=== PATIENT | female | born 2000 | race Caucasian/White ===

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

== ENCOUNTER 2021-05-16 10:11 | Emergency (ER) | payer BC, MEDICAID, SELFPAY ==
[2021-05-16 10:11] VITALS: BP 133/100; PULSE 72; RESP 18; TEMP 36; O2SAT 100
--- NOTE | 2021-05-16 10:57 | ED.VIS.FEGU ---
HPI HPI - Female History of Present Illness Chief Complaint: Informant: patient Narrative Narrative: 20-year-old female G1, P0 at approximately 16 weeks presents the emergency department out of concerns for movement. She tells me that she has been able to feel the baby move since 14 weeks gestation. She has not felt it move very well the past week if at all. She denies any vaginal bleeding or leakage of fluid. Her private banker is in [place]. PFSH PFS Medical History no medical history Social History (Updated 05/16/21 @ 10:[address] Tomas Tristan, DO) Smoking Status: Never smoker substance use type: does not use ROS ROS ED Constitutional Constitutional ED: Denies chills, fever(s) or weight loss Eyes Eyes: Denies change in vision or diplopia ENT ENT ED: Denies ear pain, rhinorrhea or sore throat Cardiovascular Cardiovascular: Denies chest pain, orthopnea, palpitations or racing heartbeat Respiratory/Chest Respiratory/Chest: Denies cough, dyspnea or orthopnea Gastrointestinal Gastrointestinal: Denies abdominal pain, diarrhea, nausea or vomiting Genitourinary Genitourinary ED: Denies dysuria, hematuria or urinary frequency Musculoskeletal Musculoskeletal: Denies arthralgias or myalgias Integumentary Denies abscess or rash Neurologic Neurologic: Denies headache(s) or weakness Psychiatric Psychiatric: Denies anxiety, depression, suicidal ideation or suicidal thoughts Endocrine Endocrinology: Denies polydipsia, polyphagia or polyuria Allergic/Immunologic Allergic/Immunologic ED: Denies mouth swelling, tongue swelling or urticaria EXAM Physical Exam Const Vital Signs: 05/16/21 10:11 Temperature 96.8 F L Temperature Source Temporal Pulse Rate 72 Respiratory Rate 18 Blood Pressure 133/100 H Blood Pressure Mean 111 Pulse Ox 100 Oxygen Delivery Method Room Air Positive well nourished and well developed General Appearance ED: well developed HEENT Reports normocephalic, head/scalp atraumatic, TM's clear and moist mucous membranes Negative for trauma Tympanic Membrane ED: Yes TM's clear Eyes PERRL and EOMs intact bilaterally Neck no lymphadenopathy, supple and no JVD Resp normal respiratory effort and clear to auscultation bilaterally Cardio regular rate, regular rhythm and no murmurs GI normal to inspection, nondistended, normoactive bowel sounds and non-tender Palpation: soft Back/Spine no CVA tenderness and normal ROM Extremity normal to inspection General Extremety ED: Negative for edema General Extremity: Negative for edema Neuro oriented x3 and CN's II-XII intact bilaterally Sensorium / Orientation: alert Motor Exam: strength 5/5 throughout Psych mental status grossly normal Mood & Affect: Negative for depressed or tearful Skin no rashes or lesions noted and no wounds MDM MDM MDM Narrative Medical decision making narrative: Bedside ultrasound performed by this physician shows a single live intrauterine with heart rate of 148 bpm. Baby has good movement. At this point patient will be discharged home given reassurance. She is advised to follow-up with her private banker Discharge Plan Triage Chief Complaint: ED Provider: Tomas Tristan Dx/Rx/DC Orders Clinical Impression: Second trimester Instructions: Preg 2nd Trimester Primary Care Provider: Mel Anderson NP Referrals: Mel Anderson NP, ADVERTISING SPECIALIST-C [Primary Care Provider] - Activity Restrictions/Additional Instructions: Please follow-up with your private banker as scheduled Disposition Disposition: Home, Self Care
== END 2021-05-16 11:38 | disposition home or self-care (01) ==
PROVIDERS: Emergency Provider Emergency Medicine; PCP Nurse Practitioner Family
DX: O36.8120 Decreased fetal movements, second trimester, not applicable or unspecified (principal); Z3A.16 16 weeks gestation of pregnancy
CPT/HCPCS: 99282

== ENCOUNTER 2021-07-21 11:54 | Outpatient (CLI) | payer BC, MEDICAID, SELFPAY ==
[2021-07-21 12:22] LABS: Hematocrit 32.9 % (37-47); Mean Corp Hgb Conc 33.4 g/dL (32-36); Mean Corpuscular Hgb 30.4 pg (27.0-32.0); Mean Corpuscular Volume 90.9 fL (81-99); Mean Platelet Vol. 10.6 fl (6.2-12.0); Platelet Count 196 K/mm3 (150-450); RBC Distribution Width CV 13.1 % (11.6-14.6); RBC Distribution Width SD 42.8 fl (35.1-43.9); Red Blood Count 3.62 M/mm3 (4.2-5.4); White Blood Count 12.5 K/mm3 (4.4-11.0)
[2021-07-21 12:39] LABS: Glucose Challenge Gest 1H 50g 82 mg/dL (70-140)
== END 2021-07-21 23:59 | disposition short-term general hospital (02) ==
PROVIDERS: PCP Nurse Practitioner Family; Visit Provider Student in an Organized Health Care Education/Training Program
DX: Z34.82 Encounter for supervision of other normal pregnancy, second trimester (principal)
CPT/HCPCS: 36415; 82950; 85027

== ENCOUNTER 2021-10-09 17:10 | Outpatient (CLI) | payer BC, MEDICAID, SELFPAY | END 2021-10-09 23:59 | disposition home or self-care (01) | LOC: LABSPEC 17:13 | PROVIDERS: PCP Nurse Practitioner Family; Visit Provider Student in an Organized Health Care Education/Training Program | DX: Z36.85 Encounter for antenatal screening for Streptococcus B (principal) | CPT/HCPCS: 87081 ==

== ENCOUNTER 2021-10-17 16:07 | Inpatient (IN) | payer BC, MEDICAID, SELFPAY ==
[2021-10-17] VITALS (19 sets, daily range): BP systolic 119–139; BP diastolic 70–87; PULSE 87–245; RESP 18; TEMP 36.4–37.1; O2SAT 78–100; BMI 25.1
[2021-10-17 16:06] LABS: ROM Internal Control Test YES-OK TO RESULT pt. (Internal QC)
[2021-10-17 16:07] LABS: ROM Patient Test POSITIVE (Negative)
[2021-10-17] MEDS: Lactated Ringers 1,000 ML 50 ML IV (16:35)
[2021-10-17 16:53] LABS: Absolute Lymphocyte Count 2.09 X10^3/uL (0.83-4.51); Absolute Neutrophil Count 11.1 X10^3/uL (2.0-7.7); Basophil# 0.04 X10^3/uL; Basophil% 0.3 % (0-1); Eosinophil# 0.05 X10^3/uL; Eosinophils% 0.3 % (0-5); Hematocrit 34.9 % (37-47); Lymphocyte # 2.09 X10^3/ul (0.83-4.51); Lymphocyte % 14.2 % (19-41); Mean Corp Hgb Conc 34.4 g/dL (32-36); Mean Corpuscular Hgb 29.7 pg (27.0-32.0); Mean Corpuscular Volume 86.4 fL (81-99); Mean Platelet Vol. 11.1 fl (6.2-12.0); Monocyte# 1.19 X10^3/uL; Monocyte% 8.1 % (0-10); NRBC Flagged by Analyzer 0 % (0-5); Neutrophil % 75.5 % (47-70); Platelet Count 180 K/mm3 (150-450); RBC Distribution Width CV 13.5 % (11.6-14.6); RBC Distribution Width SD 41.8 fl (35.1-43.9); Red Blood Count 4.04 M/mm3 (4.2-5.4); White Blood Count 14.7 K/mm3 (4.4-11.0)
[2021-10-17] MEDS: Oxytocin 30 units/NS 500 ml 30 UNITS/500 ML IV.SOLN IV (17:00)
--- NOTE | 2021-10-17 17:07 | HP.PCM.OB_ITS ---
History and Physical Date of Admission: 10/17/21 HPI: 21-year-old at 38/5 weeks, JOAO 10/26/2021 by 10-week ultrasound, admitted with spontaneous rupture of membranes. Reports large gush of fluid around 1300, with continual leaking. Reports cramping, no regular contractions. Denies vaginal bleeding. Reports movement. Denies headache, vision changes, chest pain or shortness of breath, nausea or vomiting, fevers or chills. 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 Medical history: Denies Surgical history: Denies Family history: Noncontributory Allergies: No known drug allergies Social history: Reports some vaping, denies alcohol and drug use Medications: vitamin Review of system: Negative otherwise stated as above Physical exam: Blood pressure 124/75, heart rate 93, temp 98.3 ?F, oxygen saturation 98% on room air General: No acute distress, resting comfortably in bed HEENT: Normocephalic/atraumatic, PERRLA Cardiac: Regular rate and rhythm Respiratory: Clear to auscultation bilaterally Abdomen: Soft, nontender, gravid Extremities: No edema Musculoskeletal: 5 out of 5 strength throughout all extremities Neurologic: Cranial nerves II through XII grossly intact, no focal deficits Cervical exam: 3 cm, grossly ruptured, ROM positive heart rate:145/mod jeffrey/+accel/no decel [place]: occasionally irritable panel: A+ Rubella nonimmune GBS negative on 10/09 HIV negative Hepatitis B/hepatitis C negative/negative Syphilis nonreactive CBC: WBC 14.7, hemoglobin/hematocrit 12/34.9, platelet 180 Assessment/plan:21-year-old at 38/5 weeks, JOAO 10/26/2021 by 10-week ultrasound, admitted with spontaneous rupture of membranes. -Admit to labor and delivery, routine orders ?GBS negative ?Augment with Pitocin as patient is not having contractions -Rubella nonimmune. For MMR vaccine Assessment & Plan Assessment/Plan (1) Spontaneous rupture of membranes:
[2021-10-17 17:58] LABS: Amphetamine Urine VISTA NEGATIVE (<1000 ng/mL); Barbiturate Urine VISTA NEGATIVE (< 200 ng/mL); Benzodiazepine Urine VISTA NEGATIVE (< 200 ng/mL); Cocaine Urine VISTA NEGATIVE (< 300 ng/mL); Ecstacy Urine VISTA NEGATIVE (< 500 ng/mL); Methadone Urine VISTA NEGATIVE (< 300 ng/mL); PCP Urine VISTA NEGATIVE (< 25 ng/mL); THC Urine VISTA NEGATIVE (< 50 ng/mL); Vista UDS pH Range 6
--- NOTE | 2021-10-17 20:58 | OP.PCM_ITS ---
Vaginal Delivery Findings Description of Procedure: Normal spontaneous vaginal delivery of a viable male , vertex DELILAH. Head and shoulders delivered with ease. Cord cut and clamped. Baby handed off to patient. Placenta delivered via cord traction and fundal massage. IV oxytocin initiated in order to facilitate uterine contractions. Fourth degree midline perineal/rectal laceration noted and repaired. 20 cc of 1% lidocaine used, patient's pain well controlled. Good visualization of entire laceration noted at bedside with help of overhead lighting. With good pain control and visualization no need for OR repair. 3-0 Vicryl interrupted sutures used to reapproximate rectal mucosa. 3-0 Vicryl int errupted sutures used to reapproximate anal sphincter muscles end to end. 2-0 Vicryl used at apex of vaginal coastal tear reapproximated in running lock sutures to the hymenal ring. 2-0 Vicryl interrupted sutures used to reapproximate transverse perineal muscles. 2-0 Vicryl used to reapproximate subcutaneous layer and again cutaneous layer. Good hemostasis was noted. Repeat rectal exam was performed and sutures were intact and rectum fully reapproximated. EBL 400 cc Apgars 8/9. Cefotetan 2 g IV x1 given, stool softener started.
[2021-10-17] MEDS: Ibuprofen 600 MG Tablet PO (21:10)
[2021-10-17] MEDS: Dibucaine 30 GM Tube 1 APPLIC TOPICAL (21:10)
[2021-10-17] MEDS: Oxytocin 30 units/NS 500 ml 30 UNITS/500 ML IV.SOLN 334 UNITS IV (21:22)
[2021-10-17] MEDS: Acetaminophen 500 MG Tablet 1000 MG PO (22:21)
[2021-10-17] MEDS: Senna/Docusate Sodium 1 Tablet PO (22:27)
[2021-10-18] MEDS: Ibuprofen 600 MG Tablet PO ×2 (04:05→20:36)
[2021-10-18 04:08] VITALS: BP 118/61; PULSE 88; RESP 16; TEMP 37
[2021-10-18] MEDS: oxyCODONE 5 MG Tablet PO ×4 (04:25→21:41)
[2021-10-18 08:40] VITALS: BP 109/65; PULSE 94; RESP 16; TEMP 36.4; O2SAT 96
[2021-10-18] MEDS: Acetaminophen 500 MG Tablet 1000 MG PO (10:35)
[2021-10-18 12:23] VITALS: BP 109/69; PULSE 84; RESP 16; TEMP 36.4; O2SAT 97
--- NOTE | 2021-10-18 14:59 | PN.OBGYN_ITS ---
Subjective Subjective Pt without complaints. Minimal vaginal bleeding. Wants to go home later today if baby is able to go. Objective Data Objective Data Vital Signs: Vital Signs Temp Pulse Resp BP Pulse Ox 97.5 F L 84 16 109/69 97 10/18/21 12:23 10/18/21 12:23 10/18/21 12:23 10/18/21 12:23 10/18/21 12:23 Oxygen Delivery Method Room Air Weight: 141 lb 12.116 oz Body Mass Index (BMI) 25.1 Intake & Output: Intake and Output for Last 24 Hours 10/16/21 10/17/21 10/18/21 23:59 23:59 23:59 Intake Total 715.37 / 715.37 Output Total 1100 / 1100 Balance 715.37 / 715.37 -1100 / -1100 Lab / Micro Data Result Diagrams: 10/17/21 16:35 Labs: Laboratory Results - last 24 hr 10/17/21 15:50: Vag Amniotic Fld Detect POSITIVE H 10/17/21 16:35: WBC 14.7 H, RBC 4.04 L, Hgb 12.0, Hct 34.9 L, MCV 86.4, MCH 29.7, MCHC 34.4, RDW Std Deviation 41.8, RDW Coeff of Nhi 13.5, Plt Count 180, MPV 11.1, Immature Gran % (Auto) 1.600 H, Neut % (Auto) 75.5 H, Lymph % (Auto) 14.2 L, [place] % (Auto) 8.1, Eos % (Auto) 0.3, Baso % (Auto) 0.3, Absolute Neuts (auto) 11.1 H, Absolute Lymphs (auto) 2.09, Nucleated RBC % 0 10/17/21 16:35: Blood Type A POSITIVE, Antibody Screen NEGATIVE 10/17/21 17:20: Urine Opiates Screen NEGATIVE, Urine Methadone Screen NEGATIVE, Ur Barbiturates Screen NEGATIVE, Ur Phencyclidine Scrn NEGATIVE, Ur Amphetamines Screen NEGATIVE, MDMA (Ecstasy) Screen NEGATIVE, U Benzodiazepines Scrn NEGATIVE, Urine Cocaine Screen NEGATIVE, U Cannabinoids Screen NEGATIVE, Ur Drug Screen Comment Micro: Microbiology 10/17/21 16:33 Nasal Secretion SARS-CoV-2 Antigen (Rapid) - Final Assessment & Plan (1) Spontaneous vaginal delivery: PLAN: Doing well PPD 1. Will discharge to home with routine instructions. F/U 6 weeks.
[2021-10-18] MEDS: Benzocaine/Lanolin/Aloe Vera 1 SPRAY EACH TOPICAL (15:03)
--- NOTE | 2021-10-18 15:03 | DCINST_ITS ---
Discharge Instructions Diet Discharge Diet: No restrictions Activity Discharge Activity: May Drive (In 1 to 2 days if not taking narcotic pain medication), May Shower and May Take a Tub Bath May resume sexual activity in: 4-6 weeks Additional Activity Instructions:: Nothing in the vagina for 4-6 weeks. You may return to work/school in 6 weeks. Dressing / Incision Call your doctor if you observe: Fever of 101 or Higher, Inability to urinate, Inability to have a bowel movement and Using more than 1 pad per hour Additional Dressing/Incision Instructions:: use stool softener for 4-6 weeks; sitz baths ok Follow Up Care Please Follow Up With: Yessy Lomeli DO When: Call [phone] to make an appointment with your doctor in 6 weeks. Test Results: Test results from this visit will be discussed in further detail at your follow-up appointment, if applicable. Discharge Plan Admission Admit Date/Time: 10/17/21 16:07 Primary Reason for Your Visit: Vaginal Delivery Attending Provider: Tolu Lomeli Primary Care Provider: Mel Anderson NP Discharge Orders/Prescriptions Prescriptions: No Action + Iron 1 mg Tablet 1 tab PO RF: 0 Referrals / Follow Up: Mel Anderson NP, NUCLEAR MEDICINE SPECIALIST-C [Primary Care Provider] - Disposition Disposition (needs filled in before D/C Order can be placed): Home, Self Care
[2021-10-18] MEDS: Senna/Docusate Sodium 1 Tablet PO ×2 (15:08→21:41)
[2021-10-18 15:42] VITALS: BP 109/61; PULSE 74; RESP 16; TEMP 36.1; O2SAT 97
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
--- NOTE | 2021-10-18 18:56 | NURSING ---
this RN has reviewed and agrees with all charting completed by Oren Bowles, orienting RN
[2021-10-18 20:23] VITALS: BP 109/66; PULSE 80; RESP 16; TEMP 36.6; O2SAT 97
[2021-10-19 02:35] VITALS: BP 103/56; PULSE 80; RESP 16; TEMP 36.7; O2SAT 100
[2021-10-19] MEDS: Ibuprofen 600 MG Tablet PO ×3 (02:42→15:29)
--- NOTE | 2021-10-19 07:11 | PCM.PN.OB ---
Subjective Subjective No overnight complaints. Pain well controlled Objective Data Objective Data Vital Signs: Vital Signs Temp Pulse Resp BP Pulse Ox 98.0 F 80 16 103/56 L 100 10/19/21 02:35 10/19/21 02:35 10/19/21 02:35 10/19/21 02:35 10/19/21 02:35 Oxygen Delivery Method Room Air Weight: 141 lb 12.116 oz Body Mass Index (BMI) 25.1 Intake & Output: Intake and Output for Last 24 Hours 10/17/21 10/18/21 10/19/21 23:59 23:59 23:59 Intake Total 715.37 / 715.37 Output Total 1100 / 1100 Balance 715.37 / 715.37 -1100 / -1100 Lab / Micro Data Result Diagrams: 10/17/21 16:35 Micro: Microbiology 10/17/21 16:33 Nasal Secretion SARS-CoV-2 Antigen (Rapid) - Final Physical Exam Const alert, oriented x3, no apparent distress, average body habitus, healthy appearing and well nourished HEENT normocephalic and moist oral mucous membranes Head and Scalp: atraumatic Face and Sinus: normal facial exam Neck full ROM Resp normal respiratory effort, no retractions and no use of accessory muscles Extremity normal to inspection, full ROM and no clubbing, cyanosis or edema Psych mental status grossly normal, affect normal, speech normal and activity/motor behavior normal Assessment & Plan (1) Spontaneous vaginal delivery: PLAN: day 2. Breast-feeding. Pain well controlled. Fourth degree laceration, overall pain well controlled. Discussed stool softeners and avoiding constipation. Discussed signs and symptoms of wound complications. To follow-up within 1 week
--- NOTE | 2021-10-19 07:12 | DS.PCM_ITS ---
Discharge Summary Date of Admission: 10/17/21 Date of Discharge: 10/19/21 Summary: Patient arrived in labor on 10/17/2021 and subsequently delivered vaginally on 10/17/2021. 4 degree laceration noted and repaired. 2 g cefotetan x1 given. Stool softener started. Pain well controlled. With standard recovery. Discharge home on 10/19/2021 Meaningful Use Info Meaningful Use Diagnoses (Choose all that apply): None applicable Discharge Plan Admission Admit Date/Time: 10/17/21 16:07 Primary Reason for Your Visit: Vaginal Delivery Attending Provider: Tolu Lomeli Primary Care Provider: Mel Anderson NP Instructions Additional Instructions / Restrictions: Regular diet. No lifting over 25 pounds for 2 to 3 weeks. May shower. No tub baths for 2 weeks. Call if fevers, chills, chest pain, shortness of breath. Sitz bath as needed. Follow-up 1 week Discharge Orders/Prescriptions Prescriptions: New sennosides-docusate sodium [Stool Softener-Stimulant Laxat] 8.6-50 mg Tablet 1 tab-cap PO BID Qty: 60 RF: 1 Continued gjhijabw-bsw-En-FA 1 mg Tablet 1 tab PO RF: 0 Referrals / Follow Up: Mel Anderson NP, MECHANICAL ENGINEERING TEACHER-C [Primary Care Provider] - Disposition Disposition (needs filled in before D/C Order can be placed): Home, Self Care
[2021-10-19 07:34] VITALS: BP 109/61; PULSE 89; RESP 14; TEMP 36.2
[2021-10-19] MEDS: Senna/Docusate Sodium 1 Tablet PO (09:13)
--- NOTE | 2021-10-19 12:47 | CASEMGMT ---
Social Work Labor and Delivery Unit Checked with [facility] program in [place] and can only service [facility]. [facility] referral services [facility]. Gathered list of counselor providers on [employer] Website, selecting providers that identify working with trauma and issues. Printed list out. Met with MOB in room. Update to [facility] vs [facility] and MOB agrees to [facility] referral. Educated to list of counselors. At this time, MOB will take the information and look over. Asked this contract technical writer to leave this contract technical writer's name and number, so that if decides before leaving the hospital that wants assist will call this contract technical writer. Provided MOB with list of resources for both [place] and [facility], packet on mood and anxiety disorder including supports, and list of counseling options. MOB expressed thanks. MOB smiling today, bright affect, holding baby, and appearing to be bonding. MOB looked at baby, smiled at baby,and talked to baby. [facility] referral submitted via the [facility]'s secure web based referral system. Plan: MOB and infant to discharge home today with support from MOB's parents. Community resources and counseling options provided. [facility] referral made. Will monitor for meconium drug screen results and make appropriate referrals if so indicated. No other services requested or indicated. -SHI Oliver, OXIDIZED FINISH PLATER
[2021-10-19 13:04] VITALS: BP 111/56; PULSE 83; RESP 12; TEMP 36.4
[2021-10-19] MEDS: Acetaminophen 500 MG Tablet 1000 MG PO (15:29)
== END 2021-10-19 15:30 | disposition home or self-care (01) | DRG 768 ==
LOC: WPOUT 16:11 → WP 16:11
PROVIDERS: Admitting Provider Obstetrics & Gynecology; PCP Nurse Practitioner Family; Visit Provider Obstetrics & Gynecology
DX: O70.3 Fourth degree perineal laceration during delivery (principal); Z20.822 Contact with and (suspected) exposure to COVID-19; Z37.0 Single live birth; Z3A.38 38 weeks gestation of pregnancy
CPT/HCPCS: 59025; 59050; 80307; 84112; 85025; 86850; 86900; 86901; 87426; 99218; 99406; J7120; G0378

== ENCOUNTER → 2021-11-27 | Outpatient (CLI) | payer BC, MEDICAID, SELFPAY ==
[2021-11-27 14:47] LABS: hCG Titer Quant., Serum < 1 mIU/mL (1-3)
[2021-11-27 14:49] LABS: T4 Free Direct 0.91 ng/dL (0.76-1.46); Thyroid Stim Hormone (TSH) 0.72 uIU/mL (0.358-3.74)
== END | disposition home or self-care (01) ==
LOC: WOBLAB 13:52
PROVIDERS: PCP Nurse Practitioner Family; Visit Provider Student in an Organized Health Care Education/Training Program
DX: N93.9 Abnormal uterine and vaginal bleeding, unspecified (principal)
CPT/HCPCS: 36415; 84439; 84443; 84702

== ENCOUNTER 2024-07-15 15:22 | Emergency (ER) | payer MEDICAID, SELFPAY ==
[2024-07-15] VITALS (7 sets, daily range): BP systolic 111–138; BP diastolic 69–89; PULSE 74–101; RESP 13–18; TEMP 36.1–36.6; O2SAT 97–100; BMI 25.2
--- NOTE | 2024-07-15 15:31 | ED.RN ---
Spoke with Dr. Rodriguez and Dr. Cabrera about pt sx. No orders given @ this time. Also spoke with Pablo Toth RN about pt sx, that RN to room.
--- NOTE | 2024-07-15 15:40 | ED.RN ---
S/O STATES SPEECH IS BETTER BUT NOT NORMAL.
--- NOTE | 2024-07-15 15:57 | EKG12_ITS ---
Test Reason : Blood Pressure : */* mmHG Vent. Rate : 69 BPM Atrial Rate : 69 BPM P-R Int : 136 ms QRS Dur : 78 ms QT Int : 392 ms P-R-T Axes : 45 87 63 degrees QTcB Int : 420 ms Normal sinus rhythm Normal ECG Confirmed by Cesar Macias ([id number]), fan mail editor CHARO PATHAK ([id number]) on 07/16/2024 10:19:58 AM Referred By: Confirmed By: Cesar Macias
--- NOTE | 2024-07-15 15:58 | CT_ITS ---
EXAMINATION : Head CT w/out contrast HISTORY : Neurologic changes COMPARISON : None. TECHNIQUE : Multiple contiguous axial images were obtained from the skull base to the vertex without intravenous contrast. A radiation dose optimization technique was used for this scan. FINDINGS : The ventricles and sulci are normal in size. There is no evidence for acute intracranial hemorrhage, mass effect, or midline shift. There is no extra-axial fluid collection. There is normal rocha-white differentiation, without CT evidence of acute ischemia or infarct. The skull base and calvarium are unremarkable. The orbits are unremarkable. The paranasal sinuses are clear. The mastoid air cells are well-aerated. The soft tissues are unremarkable. CT/Brain/Head without Contrast IMPRESSION: No acute intracranial abnormality. Electronically Signed: Martin Savage MD at 16:45 EST ,
--- NOTE | 2024-07-15 15:59 | MRI_ITS ---
STUDY: EXAMINATION - MRV BRAIN WITHOUT CONTRAST REASON FOR EXAM: Female, 24 years old. R/O Central venous thrombosis TECHNIQUE: 3D [id number] (TOF) imaging was performed. COMPARISON: CT brain from today. FINDINGS: Normal flow within the superior sagittal sinus. Normal flow within the superficial cortical veins. Normal flow within the paired internal cerebral veins, vein of Jorge and straight sinus. Normal flow within the bilateral transverse and sigmoid sinuses. Normal flow within the bilateral jugular bulbs. MRI/MRV Head Without Contrast IMPRESSION: Normal unenhanced MRV of the brain. Electronically Signed: Charles Casanova MD at 19:00 EST ,
[2024-07-15 16:00] LABS: Bedside Glucose 105 mg/dL (74-106)
--- NOTE | 2024-07-15 16:00 | RAD_ITS ---
INDICATION: Neurologic changes EXAMINATION/TECHNIQUE: X-RAY - XR Chest 1 View COMPARISON: None. FINDINGS: The lungs are clear. The cardiomediastinal silhouette is unremarkable. No pleural effusion or pneumothorax. No acute osseous abnormalities. RAD/Chest 1 View (Portable) IMPRESSION: No acute radiographic abnormalities. Electronically Signed: Martin Savage MD at 16:46 EST ,
[2024-07-15] MEDS: 0.9% Normal Saline (1000mL) 1,000 ML 1000 ML IV (16:10)
[2024-07-15 16:16] LABS: Mucous, Urine 0 SEEN /hpf (<or=2+)
[2024-07-15 16:18] LABS: Color, Urine Yellow (Yellow); Glucose, Dipstick Normal (Normal); Ketone-Dipstick Negative (Negative); Leukocyte Esterase-Dipstick Negative /ul (Negative); Nitrite-Dipstick Negative (Negative); Occult Blood-Urine Negative /ul (Negative); Protein-Dipstick Negative (Negative); Urine Bilirubin Dipstick Negative (Negative); Urine Clarity Clear (Clear); Urine Urobilinogen Normal (Normal)
[2024-07-15 16:19] LABS: Absolute Lymphocyte Count 1.91 X10^3/uL (0.83-4.51); Absolute Neutrophil Count 9.3 X10^3/uL (2.0-7.7); Basophil# 0.04 X10^3/uL; Basophil% 0.3 % (0-1); Eosinophil# 0.06 X10^3/uL; Eosinophils% 0.5 % (0-5); Hematocrit 32.6 % (37-47); Hemoglobin 10.6 g/dL (12.0-15.0); Lymphocyte # 1.91 X10^3/ul (0.83-4.51); Lymphocyte % 15.1 % (19-41); Mean Corp Hgb Conc 32.5 g/dL (32-36); Mean Corpuscular Hgb 26.5 pg (27.0-32.0); Mean Corpuscular Volume 81.5 fL (81-99); Mean Platelet Vol. 11.7 fl (6.2-12.0); Monocyte# 1.15 X10^3/uL; Monocyte% 9.1 % (0-10); NRBC Flagged by Analyzer 0 % (0-5); Neutrophil # 9.34 X10^3/uL (2.7-7.7); Neutrophil % 73.6 % (47-70); Platelet Count 212 K/mm3 (150-450); RBC Distribution Width CV 14.4 % (11.6-14.6); RBC Distribution Width SD 40.8 fl (35.1-43.9); White Blood Count 12.7 K/mm3 (4.4-11.0)
--- NOTE | 2024-07-15 16:27 | EDS_ITS ---
HPI History of Present Illness Chief Complaint: Neuro S/Sx Narrative Narrative: Chief complaint and HPI: Neurological deficits, resolved. 24-year-old female who is G2, P1 and 35 weeks presents for evaluation of neurological deficits that are now resolved. Patient states since June she has been getting intermittent headaches. She has updated her MOBILE GAME ENGINEER with this. She states around 2 PM while watching TV she developed a headache and blurry vision in both eyes. She states that her blurry vision was central and that she could see in the peripheries. She also felt dazed. states she had difficulty following directions. They called the MOBILE GAME ENGINEER who told them to come for evaluation. While in the car the patient states that she developed some numbness/tingling in her left hand and arm. She then had numbness in her jaw. She cannot remember if it was both sides. states she was then slow to respond with possible slurring of the speech. He then brought her to the emergency department. Patient and states her symptoms have all resolved . Patient now endorses mild headache. No complications with this or that fetus. No abdominal pain or vaginal bleeding. She is feeling the fetus move. She states she got an iron infusion yesterday. She denies any fever, chills, shortness of breath, chest pain, abdominal pain, dysuria. States she has baseline nausea throughout this . Review of systems: See HPI Medications: As listed on the chart Allergies: As listed on the chart PFSH: Per chart Vital signs: As listed on the chart. Reviewed. Physical exam: Gen: A&O x3, NAD Head: Normocephalic, atraumatic Eyes: No sclera icterus, conjunctiva clear, PERRL, EOMI, no visual field deficit ENT: Moist mucous membranes, No facial asymmetry Neck: Trachea midline, No JVD, full range of motion CV: RRR, no murmurs, no peripheral edema Resp: Lungs CTA BL, no w/r/c GI: Abd soft, non-distended, non-tender, no r/r/g Musc: Full ROM, no deformity, strength +5/5 in all extremities, no pronator drift, no ataxia, DTR +2/5 Skin: Warm, dry, intact Neuro: Alert, oriented, grossly intact, sensation intact, no focal deficits, no aphasia, no dysarthria, NIH 0 Psych: Cooperative, appropriate mood and affect PFSH PFSH Medical History no medical history Home Medications ?Medication ?Instructions ?Recorded ?Last Taken ?Type crgookna-jty-Cx-FA 1 mg 1 tab PO Check with primary doctor 10/17/21 10/16/21 09:00 History tablet sennosides 8.6 mg-docusate sodium 1 tab-cap PO BID #60 tabs 10/19/21 Unknown Rx 50 mg tablet (Stool Softener-Stimulant Laxative) cephalexin 500 mg capsule 500 mg PO Q6H 7 days #28 CAPSULES 07/15/24 Unknown Rx Allergy/AdvReac Type Severity Reaction Status Date / Time No Known Allergies Allergy Verified 07/15/24 15:23 Social History Smoking Status: Former smoker substance use type: does not use EXAM Physical Exam Const Vital Signs: 07/15/24 15:23 07/15/24 15:31 07/15/24 15:49 Temperature 97.9 F Temperature Source Temporal Pulse Rate 101 H 87 Respiratory Rate 18 13 Blood Pressure 138/89 H 134/88 H 117/79 Blood Pressure Mean 105 103 91 Pulse Ox 100 97 Oxygen Delivery Method Room Air 07/15/24 16:31 07/15/24 18:00 07/15/24 19:00 Temperature Temperature Source Pulse Rate 84 74 Respiratory Rate 16 Blood Pressure 111/69 113/74 119/84 H Blood Pressure Mean 83 87 95 Pulse Ox 100 Oxygen Delivery Method 07/15/24 19:48 Temperature 97 F L Temperature Source Pulse Rate 74 Respiratory Rate 16 Blood Pressure 117/71 Blood Pressure Mean 86 Pulse Ox 100 Oxygen Delivery Method MDM MDM MDM Narrative Medical decision making narrative: 24-year-old female who is G2, P1 and 35 weeks presents for evaluation of neurological deficits that are now resolved. See HPI. Differential diagnosis includes but is not limited to central venous thrombosis, complex migraine, TIA, electrolyte abnormality, preeclampsia, symptomatic hypertension. On presentation patient was hypertensive at 138/89 however repeat blood pressure 117/79. Patient states she has had no issues with hypertension throughout this . NS bolus ordered. Laboratory workup ordered including CT head and MRV head. heart tones 160. POC glucose normal. CBC with mild leukocytosis of 12.7. This can be seen in . Patient has anemia of 10.6. Again not uncommon for . Platelets unremarkable. Coagulation panel unremarkable. CMP without ESTUARDO or transaminitis. Troponin unremarkable. LDH unremarkable. UA negative for ketones or blood. UA negative for UTI but patient does have bacteria. CT head without any acute intracranial process. MRV unremarkable. Patient has remained asymptomatic in our emergency department. Unclear etiology for her symptoms. May be secondary to a complex migraine given that patient had a headache at the time of symptom onset. MRI brain without abnormalities. Patient's MOBILE GAME ENGINEER was contacted and I spoke with Dr. Ross he was the physician on-call. She was updated on all results. Plan is to follow-up in their office. Patient was updated on all her results and the plan. She confirmed understanding. Return precautions explained. Patient stable to discharge home. EKG: Interpreted by me/EM physician: EKG shows normal sinus rhythm without any acute ischemic changes. Heart rate 69 Diagnostic: Interpreted by me/EM physician: Chest x-ray without pneumonia, cardiomegaly, effusion, pneumothorax Impression: 1. Alteration in neurological function, resolved. Possible complex migraine. 2. Anemia 3. Third trimester Lab Data Labs: Laboratory Results - last 24 hr 07/15/24 07/15/24 15:38 15:42 WBC 12.7 H RBC 4.00 L Hgb 10.6 L Hct 32.6 L MCV 81.5 MCH 26.5 L MCHC 32.5 RDW Std Deviation 40.8 RDW Coeff of Nhi 14.4 Plt Count 212 MPV 11.7 Immature Gran % (Auto) 1.400 H Neut % (Auto) 73.6 H Lymph % (Auto) 15.1 L Mcleod % (Auto) 9.1 Eos % (Auto) 0.5 Baso % (Auto) 0.3 Absolute Neuts (auto) 9.3 H Absolute Lymphs (auto) 1.91 Nucleated RBC % 0 PT 12.7 INR 0.9 APTT 28.2 Sodium 137 Potassium 3.6 Chloride 104 Carbon Dioxide 27.0 Anion Gap 6 BUN 8 Creatinine 0.70 Estim Creat Clear Calc 113.10 Est GFR (MDRD) Af Amer 133 Est GFR (MDRD) Non-Af 110 BUN/Creatinine Ratio 11.4 Glucose 100 Calcium 8.7 Total Bilirubin 0.20 AST 14 L ALT 20 Alkaline Phosphatase 196 H Lactate Dehydrogenase 158 Troponin I High Sens 3 Total Protein 6.6 Albumin 2.4 L Globulin 4.2 Albumin/Globulin Ratio 0.6 L Urine Color Yellow Urine Clarity Clear Urine pH 7.0 Ur Specific [place] 1.010 Urine Protein Negative Urine Glucose (UA) Normal Urine Ketones Negative Urine Occult Blood Negative Urine Nitrite Negative Urine Bilirubin Negative Urine Urobilinogen Normal Ur Leukocyte Esterase Negative Urine RBC 0-5 SEEN Urine WBC 5-10 SEEN Ur Squamous Epith Cells 0-5 SEEN Urine Bacteria 1+ Urine Mucus 0 SEEN POC Glucose 105 Radiography Diagnostic Testing: Clinical Impression(s) from Imaging Studies Brain CT 07/15/24 15:58 IMPRESSION: No acute intracranial abnormality. Electronically Signed: Martin Savage MD at 16:45 EST , Brain MRI 07/15/24 15:59 IMPRESSION: Normal unenhanced MRV of the brain. Electronically Signed: Charles Casanova MD at 19:00 EST , Chest X-Ray 07/15/24 16:00 IMPRESSION: No acute radiographic abnormalities. Electronically Signed: Martin Savage MD at 16:46 EST , Discharge Plan Triage Chief Complaint: Neuro S/Sx ED Provider: Johnathan Calloway Dx/Rx/DC Orders Clinical Impression: Headache, Alteration in neurologic function Instructions: ED Headache Unspecified, ED Symptoms Uncertain Cause Prescriptions: New cephalexin 500 mg capsule 500 mg PO Q6H 7 Days Qty: 28 0RF No Action jsgzkrem-jwg-Hn-FA 1 mg Tablet 1 tab PO sennosides-docusate sodium [Stool Softener-Stimulant Laxat] 8.6-50 mg Tablet 1 tab-cap PO BID Qty: 60 1RF Primary Care Provider: Mel Anderson NIGHT PATROL INSPECTOR Referrals: John Motley MD [Med Staff - Active Staff] - 3-5 Days Mel Anderson NP, NIGHT PATROL INSPECTOR-C [Primary Care Provider] - 3-5 Days Activity Restrictions/Additional Instructions: Return back to the ED if symptoms change or worsen. Follow-up with your primary care physician. Call the office tomorrow and follow-up with your MOBILE GAME ENGINEER. Print Language: Tuvaluan Disposition Disposition: Home, Self Care Discharge Date/Time: 07/15/24 20:01
[2024-07-15 16:28] LABS: International Normalized Ratio 0.9; Prothrombin Time (Protime)PT. 12.7 SECONDS (11.7-14.9)
[2024-07-15 16:29] LABS: Partial Thromboplast Time 28.2 Seconds (24.1-36.2)
[2024-07-15 16:42] LABS: Bacteria 1+ /hpf (None Seen); Red Blood Cells-Urine 0-5 SEEN /hpf (0-5); Squamous Epithelial Cells - UA 0-5 SEEN /hpf (5-10)
[2024-07-15 16:43] LABS: White Blood Cells 5-10 SEEN /hpf (0-5)
[2024-07-15 17:01] LABS: ALB/GLOB Ratio 0.6 RATIO (0.9-2.4); AST(SGOT) 14 U/L (15-37); Alanine Aminotransfer ALT/SGPT 20 U/L (13-56); Albumin, Serum 2.4 g/dL (3.2-5.0); Alkaline Phosphatase 196 U/L (45-117); Anion Gap 6 (5-15); BUN 8 mg/dL (7-18); BUN/Creat Ratio 11.4 RATIO (10-20); Calcium,Total 8.7 mg/dL (8.5-10.1); Chloride 104 mmol/L (98-107); EST Glomerular Filtration Rate 110 mL/min (>60); Est Glom Filt Rate - Afr Amer 133 mL/min (>60); Globulin 4.2 g/dL (2.2-4.2); Glucose 100 mg/dL (74-106); LDH 158 U/L (84-246); Potassium 3.6 mmol/L (3.5-5.1); Protein, Total 6.6 g/dL (6.4-8.2); Sodium Level 137 mmol/L (136-145); Troponin-I HS 3 pg/mL (3.0-54.0)
== END 2024-07-15 20:01 | disposition home or self-care (01) ==
PROVIDERS: Emergency Provider Surgery; PCP Nurse Practitioner Family; Visit Provider Surgery
DX: O99.891 Other specified diseases and conditions complicating pregnancy (principal); R29.818 Other symptoms and signs involving the nervous system; O99.013 Anemia complicating pregnancy, third trimester; R51.9 Headache, unspecified; D64.9 Anemia, unspecified; Z3A.35 35 weeks gestation of pregnancy; Z87.891 Personal history of nicotine dependence
CPT/HCPCS: 70450; 70544; 71045; 80053; 81001; 82962; 83615; 84484; 85025; 85610; 85730; 93005; 96360; 96361; 99285

== ENCOUNTER 2024-08-11 09:33 | Inpatient (IN) | payer OTHER, MEDICAID, SELFPAY ==
[2024-08-11] VITALS (16 sets, daily range): BP systolic 95–137; BP diastolic 52–90; PULSE 53–95; RESP 14–20; TEMP 36.1–37.1; O2SAT 96–100; BMI 25.7
[2024-08-11] MEDS: Lactated Ringers 1,000 ML 999 ML IV (10:10)
[2024-08-11 10:42] LABS: Absolute Neutrophil Count 9.6 X10^3/uL (2.0-7.7); Basophil# 0.03 X10^3/uL; Basophil% 0.2 % (0-1); Eosinophil# 0.02 X10^3/uL; Eosinophils% 0.2 % (0-5); Hematocrit 38.8 % (37-47); Hemoglobin 12.2 g/dL (12.0-15.0); Lymphocyte % 13.3 % (19-41); Mean Corp Hgb Conc 31.4 g/dL (32-36); Mean Corpuscular Hgb 27.1 pg (27.0-32.0); Mean Corpuscular Volume 86.2 fL (81-99); Mean Platelet Vol. 11.7 fl (6.2-12.0); Monocyte# 0.68 X10^3/uL; Monocyte% 5.7 % (0-10); NRBC Flagged by Analyzer 0 % (0-5); Neutrophil # 9.56 X10^3/uL (2.7-7.7); Neutrophil % 79.5 % (47-70); Platelet Count 155 K/mm3 (150-450); RBC Distribution Width CV 18.6 % (11.6-14.6)
[2024-08-11] MEDS: Acetaminophen 500 MG Tablet 1000 MG PO ×3 (11:28→23:29)
[2024-08-11] MEDS: Sodium Citrate/Citric Acid 30 ML UDC PO (11:29)
[2024-08-11 11:37] LABS: Syphilis Antibodies Non-reactive
[2024-08-11] MEDS: Cefazolin 2 GM in Syringe IV (11:56)
--- NOTE | 2024-08-11 12:00 | PCM.HP.OB ---
HPI - General General Date of Admission: 08/11/24 HPI Narrative JACKI GALLOWAY, is a 24 F who presents for section. Maternal Data Information JOAO Calculator Estimated Delivery Date Method Current WG Current Estimate 08/18/24 Manual 39w 0d PFSH PFSH Home Medications ?Medication ?Instructions ?Recorded ?Last Taken ?Type qushzyrw-lbm-Wb-FA 1 mg 1 tab PO DAILY Check with primary 10/17/21 08/04/24 08:00 History tablet doctor 1 TAB Allergy/AdvReac Type Severity Reaction Status Date / Time No Known Allergies Allergy Verified 08/11/24 11:23 Social History Smoking Status: Never smoker substance use type: does not use History 1 Elective abortions Hx Para 1 Spontaneous abortions Hx # Term Pregnancies Ectopic pregnancies Hx # Pregnancies Multiple births # of living children 1 Vital Signs Vital Signs Vital Signs: 08/11/24 11:42 Temperature 98.8 F Temperature Source Temporal Pulse Rate 72 Respiratory Rate 16 Blood Pressure 114/76 Blood Pressure Mean 88 Blood Pressure Source Monitor Blood Pressure Position Semi-Fowlers Blood Pressure Location Right Arm Pulse Ox 100 Oxygen Delivery Method Room Air Weight Weight: 145 lb 4.554 oz Body Mass Index (BMI) 25.7 Physical Exam Const alert, oriented x3 and no apparent distress Chest inspection of chest normal Resp normal respiratory effort GI soft to palpation, non-tender and non-distended Inspection: gravid Extremity normal to inspection Labs Labs Labs: Blood Type A POSITIVE Antibody Screen NEGATIVE Hct 38.8 % (37-47) Hgb 12.2 g/dL (12.0-15.0) Syphilis Total Ab Non-reactive Chlamydia DNA (SASHA) Negative (Negative) N.gonorrhoeae DNA (SASHA) Negative (Negative) Glucose 1 Hr 50 gm 82 mg/dL (70-140) Assessment & Plan (1) History of maternal fourth degree perineal laceration, currently : COMMENT: @ 39 weeks PLAN: Plan Discussed R/B/A of MOD. Patient wishes to proceed with primary . Informed consent signed.
[2024-08-11] MEDS: Methylergonovine 0.2 MG/ML Ampul IM (12:33)
--- NOTE | 2024-08-11 12:58 | EX.PCM.OBRPT ---
Maternal Data Information JOAO Calculator Estimated Delivery Date Method Current WG Current Estimate 08/18/24 Manual 39w 0d Operative Report (OB) Cecarean Details Procedure Type: low transverse Date of Procedure: 08/11/24 Procedure Start Time: 12:20 Procedure Stop Time: 12:54 Pre-Operative Diagnosis: Other Other Pre-Operative diagnosis: History of fourth degree laceration Post-Operative Diagnosis: Same as Pre-operative diagnosis Classification: Scheduled Type of Anesthesia: Spinal Antibiotic Given: Ancef 2 grams IV x1 Drain: Fitzgerald to straight drain Estimated Blood Loss: 800ml Findings Description of surgery: The patient was taken to the operating room where spinal anesthesia was placed & found to be adequate. She was prepped and draped in the dorsal supine position with a leftward tilt. A Pfannenstiel skin incision was made approximately 2 cm above the symphysis pubis and carried through to the underlying fascia with the scalpel. The fascia was incised incised in the midline and extended laterally with the Coelho scissors. The rectus muscles were in the midline and the peritoneum was entered carefully and bluntly. The peritoneal incision was stretched and the bladder blade was inserted. Vesicouterine peritoneum was tented up, incised & then bladder flap created gently. The uterine incision was made in a low transverse fashion with the scalpel and extended superiorly and inferiorly with blunt dissection. The infant's head was brought to the incision in the flexed position and delivered without difficulty. The head was gently guided to allow delivery of the anterior and posterior shoulders. The body then delivered with fundal pressure in the standard fashion. The 3VC cord was clamped and cut in slightly delayed fashion. The infant was handed off to the waiting pediatric dental assistant. The placenta was delivered with fundal massage and gentle traction in the standard fashion. The uterus was exteriorized and cleared of clots and debris. The uterine incision was closed with #1 Vicryl suture in a running locked fashion. Monocryl suture was used in an imbricating fashion. The incision was examined and was found to be hemostatic. The uterus was returned to the abdominal cavity. After irrigating Maximino was placed over the uterine incision as some areas were denuded (but hemostatic). The rectus muscle was examined and any bleeding was Bovie cauterized. The fascia was closed with PDS suture in a running standard fashion. The subcutaneous tissue was examining and any bleeding was Bovie cauterized. The subcutaneous tissue was reapproximated with interrupted sutures. The skin was closed in a subcuticular fashion by the TREATING ENGINEER while I was present in the OR. The remainder of the procedure was performed by me with assistance. Surgical findings: normal maternal uterus and adnexa Presentation: Vertex Amniotic Membrane Rupture Type: Artificial Amniotic Fluid Description: Clear Placental Delivery Description: Expressed Placenta Disposition: [facility] Specimen collected: No Cord Vessel Description: 3 Vessels Cord Entanglement: None Infant A gender: Male (1 minute): 8 (5 minute): 9 Delayed Cord Clamping: Yes Snuff Packing Machine Operator photographic laboratory supervisor: Yes Factory Helper: Narda Bustos Tasks completed by music assistant: Opening & closing and Retracting Additional transition assistant?: No Complications Complications: No
[2024-08-11] MEDS: Oxytocin 15 Units/NS 250ml 15 UNITS/250 ML IV.SOLN 83 UNITS IV (13:24)
[2024-08-11] MEDS: Ketorolac 30 MG/ML Syringe IV ×2 (13:43→20:10)
[2024-08-11] MEDS: proCHLORPERazine 10 MG/2 ML Vial IV (13:51)
[2024-08-11] MEDS: Nalbuphine 10 MG/ML Ampul 5 MG IV (13:51)
[2024-08-11] MEDS: 0.9% Saline Lock 10 ML Syringe IV (20:10)
--- NOTE | 2024-08-11 20:38 | NURSING ---
IV infiltrated, got swollen after Toradol administration
[2024-08-12] MEDS: Enoxaparin 40 MG/0.4 ML Syringe SC (02:53)
[2024-08-12] MEDS: 0.9% Saline Lock 10 ML Syringe IV (02:54)
[2024-08-12] MEDS: Ketorolac 30 MG/ML Syringe IV ×2 (02:54→08:41)
[2024-08-12 03:00] VITALS: BP 106/70; PULSE 67; RESP 16; TEMP 36.2; O2SAT 99
[2024-08-12 03:20] LABS: Hematocrit 32.2 % (37-47); Hemoglobin 10.3 g/dL (12.0-15.0); Mean Corpuscular Hgb 28.2 pg (27.0-32.0); Mean Corpuscular Volume 88.2 fL (81-99); Mean Platelet Vol. 12.1 fl (6.2-12.0); Platelet Count 144 K/mm3 (150-450); RBC Distribution Width CV 18.9 % (11.6-14.6); RBC Distribution Width SD 59.9 fl (35.1-43.9); Red Blood Count 3.65 M/mm3 (4.2-5.4); White Blood Count 16.1 K/mm3 (4.4-11.0)
[2024-08-12] MEDS: Acetaminophen 500 MG Tablet 1000 MG PO ×2 (06:07→11:29)
[2024-08-12 07:00] VITALS: BP 97/62; PULSE 76; RESP 16; TEMP 36.4; O2SAT 100
--- NOTE | 2024-08-12 08:40 | PCM.PN.OB ---
Subjective Subjective Doing well. Ambulating and voiding without difficulty. Mild lochia. Breast feeding. Objective Data Objective Data Vital Signs: Vital Signs Temp Pulse Resp BP Pulse Ox O2 Del Method 97.5 F L 76 16 97/62 100 Room Air 08/12/24 07:00 08/12/24 07:00 08/12/24 07:00 08/12/24 07:00 08/12/24 07:00 08/12/24 07:00 Oxygen Delivery Method Room Air Weight: 65.9 kg Body Mass Index (BMI) 25.7 Intake & Output: Intake and Output for Last 24 Hours 08/10/24 08/11/24 08/12/24 23:59 23:59 23:59 Intake Total 1270 / 1270 Output Total 1650 / 1650 550 / 550 Balance -380 / -380 -550 / -550 Lab / Micro Data 08/12/24 03:07 Labs: Laboratory Results - last 24 hr 08/11/24 10:10: Syphilis Total Ab Non-reactive, Blood Type A POSITIVE, Antibody Screen NEGATIVE 08/11/24 10:37: WBC 12.0 H, RBC 4.50, Hgb 12.2, Hct 38.8, MCV 86.2, MCH 27.1, MCHC 31.4 L, RDW Std Deviation 58.0 H, RDW Coeff of Nhi 18.6 H, Plt Count 155, MPV 11.7, Immature Gran % (Auto) 1.100 H, Neut % (Auto) 79.5 H, Lymph % (Auto) 13.3 L, Ritchie % (Auto) 5.7, Eos % (Auto) 0.2, Baso % (Auto) 0.2, Absolute Neuts (auto) 9.6 H, Absolute Lymphs (auto) 1.60, Nucleated RBC % 0 08/12/24 03:07: WBC 16.1 H, RBC 3.65 L, Hgb 10.3 L, Hct 32.2 L, MCV 88.2, MCH 28.2, MCHC 32.0, RDW Std Deviation 59.9 H, RDW Coeff of Nhi 18.9 H, Plt Count 144 L, MPV 12.1 H ROS Constitutional Constitutional: Denies fatigue, fever(s) or malaise Eyes Eyes: Denies change in vision ENT HEENT: Denies dizziness or headache(s) Cardiovascular Cardiovascular: Denies chest pain, dyspnea or lightheadedness Respiratory/Chest Respiratory/Chest: Denies cough or dyspnea Gastrointestinal Gastrointestinal: Denies change in bowel habits Genitourinary Genitourinary: Denies burning urination or genital lesions Integumentary Integumentary: Denies rash Neurologic Neurologic: Denies confusion, dizziness, headache(s), numbness or weakness Physical Exam Const alert General Appearance: cooperative GI GI Narrative: soft, moderate distention, fundus firm, appropriately tender. Abdominal bandage clean dry and intact Assessment & Plan (1) History of fourth degree perineal laceration: (2) S/P : PLAN: Plan Discharge home this afternoon
--- NOTE | 2024-08-12 08:41 | PCM.DC.SUM ---
Providers Date of Admission: 08/11/24 Date of Discharge: 08/12/24 Primary Care Physician: JESSICA Borden Reason For Visit: PRIMARY Diagnosis Discharge Diagnosis (1) History of fourth degree perineal laceration: Status: Acute Code(s): Z87.59 - Personal history of other complications of , childbirth and the puerperium (2) S/P : Status: Acute Code(s): Z98.891 - History of uterine scar from previous surgery Plan Discharge home this afternoon Medications at Discharge Home Medications nuxawjsr-zop-Ph-FA 1 mg tablet 1 tab PO DAILY Check with primary doctor 10/17/21 Hospital Course Operations section Procedures None Physical Exam Const alert General Appearance: cooperative GI GI Narrative: soft, moderate distention, fundus firm, appropriately tender. Abdominal bandage clean dry and intact Weight / BMI Weight Weight: 65.9 kg Body Mass Index (BMI) 25.7 ABG / Lab / Microbiology Data 08/12/24 03:07 Laboratory: Laboratory Results - last 24 hr 08/11/24 10:10: Syphilis Total Ab Non-reactive, Blood Type A POSITIVE, Antibody Screen NEGATIVE 08/11/24 10:37: WBC 12.0 H, RBC 4.50, Hgb 12.2, Hct 38.8, MCV 86.2, MCH 27.1, MCHC 31.4 L, RDW Std Deviation 58.0 H, RDW Coeff of Nhi 18.6 H, Plt Count 155, MPV 11.7, Immature Gran % (Auto) 1.100 H, Neut % (Auto) 79.5 H, Lymph % (Auto) 13.3 L, Mitchell % (Auto) 5.7, Eos % (Auto) 0.2, Baso % (Auto) 0.2, Absolute Neuts (auto) 9.6 H, Absolute Lymphs (auto) 1.60, Nucleated RBC % 0 08/12/24 03:07: WBC 16.1 H, RBC 3.65 L, Hgb 10.3 L, Hct 32.2 L, MCV 88.2, MCH 28.2, MCHC 32.0, RDW Std Deviation 59.9 H, RDW Coeff of Nhi 18.9 H, Plt Count 144 L, MPV 12.1 H D/C Instructions Discharge Diet: No restrictions May resume sexual activity in: 4-6 weeks Lifting Restrictions: 20 pounds Additional Activity Instructions: Nothing in the vagina for 4-6 weeks. You may return to work/school in 6 weeks. Call your doctor if your incision/area has: Continuous Slow Oozing, Sudden Increased Bleeding, Increased Pain/ Swelling, Increased Redness and Foul Smelling Discharge Call your doctor if you observe: Fever of 101 or Higher and Using more than 1 pad per hour (for 2 hours) Suture Line Care: Avoid Pulling/Pushing and Avoid Pinching/Bending Cleanse incision/area with: Keep Dressing Clean & Dry DC O2, CPAP, BIPAP Needs Home O2 Discharge instructions: No Please Follow Up With: Susana Bolaños MD When: Call to make an appointment for an incision check in 1-2 [phone]. You will need a post check in 6 weeks. Meaningful Use Info Meaningful Use Meaningful Use Diagnoses (Choose all that apply): None applicable Ischemic Stroke Statin Dosing Therapy Reference: STATIN DOSE THERAPY REFERENCE: * Patients > 75 years receive moderate or high dose statin therapy. * Patients 75 years or YOUNGER should receive HIGH intensity statin dose unless contraindicated. You will be required to document reason for non-treatment if statin daily dose does not meet guidelines. HIGH DOSE STATIN THERAPY DAILY Atorvastatin > than or = to 40 mg Rosuvastatin > than or = to 20 mg Amlodipine + Atorvastatin > than or = to 2.5/40 mg Ezetimibe + Simvastatin 10/80 mg Simvastatin 80mg Discharge Plan Admission Admit Date/Time: 08/11/24 09:33 Primary Reason for Your Visit: delivery Attending Provider: John Motley Primary Care Provider: Mel Anderson NP Discharge Orders/Prescriptions Prescriptions: Continued nnbbhgoo-ppm-Yw-FA 1 mg Tablet 1 tab PO DAILY Referrals / Follow Up: Mel Anderson NP, HOUSEKEEPING [facility] [Primary Care Provider] - Disposition Disposition (needs filled in before D/C Order can be placed): Home, Self Care
[2024-08-12] MEDS: Senna/Docusate Sodium 1 Tablet PO (10:49)
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
[2024-08-12] MEDS: Ibuprofen 600 MG Tablet PO (14:44)
== END 2024-08-12 16:15 | disposition home or self-care (01) | DRG 788 ==
PROVIDERS: Admitting Provider Obstetrics & Gynecology; PCP Nurse Practitioner Family; Referring Provider Obstetrics & Gynecology; Visit Provider Obstetrics & Gynecology
PROC: (CPT 59514; principal; 2024-08-11 11:45)
DX: O26.893 Other specified pregnancy related conditions, third trimester (principal); Z37.0 Single live birth; Z3A.39 39 weeks gestation of pregnancy; Z87.59 Personal history of other complications of pregnancy, childbirth and the puerperium
CPT/HCPCS: 59025; 59050; 85025; 85027; 86780; 86850; 86900; 86901; A4216; J2405

== ENCOUNTER 2024-08-22 09:11 | Observation (INO) | payer OTHER, MEDICAID, SELFPAY ==
[2024-08-22] VITALS (7 sets, daily range): BP systolic 87–110; BP diastolic 52–67; PULSE 88–114; RESP 16–18; TEMP 36.6–38.7; O2SAT 97–100; BMI 21.5
[2024-08-22] MEDS: Ketorolac 30 MG/ML Syringe IV (10:05)
[2024-08-22] MEDS: Piperacil/Tazobactam 3.375 GM in 0.9% Normal Saline (50mL MB+) 50 ML IV ×3 (11:21→23:51)
[2024-08-22] MEDS: Acetaminophen 500 MG Tablet 1000 MG PO (20:38)
[2024-08-22] MEDS: Senna/Docusate Sodium 1 Tablet PO (20:38)
--- NOTE | 2024-08-22 20:48 | PCM.HP.OB ---
HPI - General General Date of Admission: 08/22/24 Date of Service: 08/22/24 Chief Complaint: endometritis HPI Narrative JACKI GALLOWAY, is a 24 F who presents from [place] ED with fever chills and pelvic pain. Endometritis suspected by CT. Zosyn and vanc started in [place] ED and pt transferred to [place]. Symptoms started on Saturday. First fever on 08/22 at 0100. Minimal vaginal bleeding. Breast feeding but no pain in breasts. No respiratory symptoms. No N/V/D. on Aug 08. Uncomplicated. Maternal Data Information JOAO Calculator Estimated Delivery Date Method Current WG Current Estimate 08/18/24 Manual 40w 4d PFSH PFSH Home Medications ?Medication ?Instructions ?Recorded ?Last Taken ?Type qkibhsqn-[id number]-[id number]-FA 1 mg 1 tab PO DAILY Check with primary 10/17/21 08/04/24 08:00 History tablet doctor 1 TAB Allergy/AdvReac Type Severity Reaction Status Date / Time No Known Allergies Allergy Verified 08/11/24 11:23 Surgical History Delivery by section Social History Smoking Status: Never smoker substance use type: does not use History 2 Elective abortions Hx Para 2 Spontaneous abortions Hx # Term Pregnancies Ectopic pregnancies Hx # Pregnancies Multiple births # of living children 2 ROS Constitutional Constitutional: Reports fatigue and fever(s) ENT HEENT: Reports headache(s); Denies nasal congestion or nasal discharge Respiratory/Chest Respiratory/Chest: Denies cough, dyspnea or shortness of breath with exertion Gastrointestinal Gastrointestinal: Reports constipation; Denies diarrhea, nausea or vomiting Genitourinary Genitourinary: Denies dysuria or urinary frequency Neurologic Neurologic: Reports headache(s); Denies confusion or dizziness Psychiatric Psychiatric: Denies depression or mood swings Vital Signs Vital Signs Vital Signs: 08/22/24 08:44 08/22/24 08:44 08/22/24 08:47 Temperature 97.9 F 97.9 F Temperature Source Oral Oral Pulse Rate 90 90 Pulse Strength Respiratory Rate 16 16 Respiratory Effort Normal Respiratory Depth Normal Respiratory Pattern Normal Blood Pressure 110/61 110/61 Blood Pressure Mean 77 77 Blood Pressure Source Monitor Blood Pressure Position Semi-Fowlers Blood Pressure Location Left Arm Pulse Ox 100 100 Oxygen Delivery Method Room Air Room Air Room Air 08/22/24 11:35 08/22/24 14:16 08/22/24 14:17 Temperature 99.6 F H 98.9 F Temperature Source Oral Oral Pulse Rate 88 95 Pulse Strength Respiratory Rate 16 16 Respiratory Effort Normal Respiratory Depth Normal Respiratory Pattern Normal Blood Pressure 87/52 L 98/55 L Blood Pressure Mean 63 69 Blood Pressure Source Monitor Manual Blood Pressure Position Semi-Fowlers Semi-Fowlers Blood Pressure Location Right Arm Left Arm Pulse Ox 97 98 Oxygen Delivery Method Room Air Room Air Room Air 08/22/24 14:18 08/22/24 14:20 08/22/24 20:00 Temperature 98.9 F 101.6 F H Temperature Source Oral Oral Pulse Rate 95 114 H Pulse Strength Normal (2+) Respiratory Rate 16 18 Respiratory Effort Respiratory Depth Respiratory Pattern Blood Pressure 98/55 L 108/67 Blood Pressure Mean 69 80 Blood Pressure Source Blood Pressure Position Blood Pressure Location Pulse Ox 98 98 Oxygen Delivery Method Room Air Room Air 08/22/24 20:00 08/22/24 20:00 08/22/24 20:25 Temperature 101.6 F H Temperature Source Oral Pulse Rate 114 H Pulse Strength Normal (2+) Respiratory Rate 18 Respiratory Effort Normal Non-Labored Respiratory Depth Normal Respiratory Pattern Normal Blood Pressure 108/67 Blood Pressure Mean 80 Blood Pressure Source Monitor Blood Pressure Position Semi-Fowlers Blood Pressure Location Left Arm Pulse Ox 98 Oxygen Delivery Method Room Air Room Air Weight Weight: 56.245 kg Body Mass Index (BMI) 21.5 Physical Exam Const alert, oriented x3 and no apparent distress General Appearance: cooperative and comfortable HEENT normocephalic Head and Scalp: atraumatic Eyes PERRL and EOMs intact bilaterally Neck full ROM Resp normal respiratory effort GI soft to palpation Inspection: incision intact and healing well Palpation: tender suprapubic Extremity normal to inspection and full ROM Skin no rashes or lesions noted Neuro moves all extremities Psych mental status grossly normal Labs Labs Labs: Blood Type A POSITIVE Antibody Screen NEGATIVE Hct 32.2 % (37-47) L Hgb 10.3 g/dL (12.0-15.0) L Syphilis Total Ab Non-reactive Chlamydia DNA (SASHA) Negative (Negative) N.gonorrhoeae DNA (SASHA) Negative (Negative) Glucose 1 Hr 50 gm 82 mg/dL (70-140) Assessment & Plan (1) endometritis: PLAN: Plan Lactic acid normal WBC mildly elevated Zosyn Toradol
[2024-08-23] VITALS: BP 105/63; PULSE 67; RESP 18; TEMP 36.7; O2SAT 98; O2SAT 99
[2024-08-23 05:26] VITALS: BP 100/59; PULSE 78; RESP 14; TEMP 36.6; O2SAT 99
[2024-08-23] MEDS: Piperacil/Tazobactam 3.375 GM in 0.9% Normal Saline (50mL MB+) 50 ML IV ×3 (05:30→18:30)
[2024-08-23 06:21] LABS: Absolute Lymphocyte Count 0.99 X10^3/uL (0.83-4.51); Absolute Neutrophil Count 5.6 X10^3/uL (2.0-7.7); Basophil# 0.02 X10^3/uL; Basophil% 0.3 % (0-1); Eosinophil# 0.23 X10^3/uL; Eosinophils% 3.2 % (0-5); Hematocrit 30.8 % (37-47); Hemoglobin 9.8 g/dL (12.0-15.0); Lymphocyte # 0.99 X10^3/ul (0.83-4.51); Lymphocyte % 13.6 % (19-41); Mean Corp Hgb Conc 31.8 g/dL (32-36); Mean Corpuscular Hgb 27.3 pg (27.0-32.0); Mean Corpuscular Volume 85.8 fL (81-99); Mean Platelet Vol. 9.9 fl (6.2-12.0); Monocyte# 0.44 X10^3/uL; NRBC Flagged by Analyzer 0 % (0-5); Neutrophil # 5.56 X10^3/uL (2.7-7.7); Neutrophil % 76.1 % (47-70); Platelet Count 204 K/mm3 (150-450); RBC Distribution Width CV 17.5 % (11.6-14.6); RBC Distribution Width SD 54.7 fl (35.1-43.9); Red Blood Count 3.59 M/mm3 (4.2-5.4); White Blood Count 7.3 K/mm3 (4.4-11.0)
--- NOTE | 2024-08-23 08:55 | PN.OBGYN_ITS ---
Subjective Subjective Feeling better. No fever since 8 pm. Pain better. Tolerating PO. Breast feeding Objective Data Objective Data Vital Signs: Vital Signs Temp Pulse Resp BP Pulse Ox O2 Del Method 97.8 F 78 14 100/59 L 99 Room Air 08/23/24 05:26 08/23/24 05:26 08/23/24 05:26 08/23/24 05:26 08/23/24 05:26 08/23/24 05:26 Oxygen Delivery Method Room Air Weight: 56.245 kg Body Mass Index (BMI) 21.5 Intake & Output: Intake and Output for Last 24 Hours 08/21/24 08/22/24 08/23/24 23:59 23:59 23:59 Intake Total 1000 / 1000 50 / 50 Balance 1000 / 1000 50 / 50 Lab / Micro Data 08/23/24 05:49 Labs: Laboratory Results - last 24 hr 08/23/24 05:49: WBC 7.3, RBC 3.59 L, Hgb 9.8 L, Hct 30.8 L, MCV 85.8, MCH 27.3, MCHC 31.8 L, RDW Std Deviation 54.7 H, RDW Coeff of Nhi 17.5 H, Plt Count 204, MPV 9.9, Immature Gran % (Auto) 0.800, Neut % (Auto) 76.1 H, Lymph % (Auto) 13.6 L, [place] % (Auto) 6.0, Eos % (Auto) 3.2, Baso % (Auto) 0.3, Absolute Neuts (auto) 5.6, Absolute Lymphs (auto) 0.99, Nucleated RBC % 0 Physical Exam Const alert General Appearance: cooperative GI soft to palpation, non-tender and non-distended Assessment & Plan (1) endometritis: PLAN: Plan Anticipate discharge after 24 hours afebrile
[2024-08-23] MEDS: Acetaminophen 500 MG Tablet 1000 MG PO ×2 (10:42→20:34)
[2024-08-23 11:00] VITALS: BP 98/64; PULSE 82; RESP 16; TEMP 37.1; O2SAT 99
[2024-08-23 17:00] VITALS: BP 126/71; PULSE 80; RESP 14; TEMP 36.7; O2SAT 99
[2024-08-23 20:17] VITALS: BP 103/68; PULSE 63; RESP 16; TEMP 36.8; O2SAT 95
[2024-08-23] MEDS: Senna/Docusate Sodium 1 Tablet PO (20:35)
--- NOTE | 2024-08-23 21:37 | DS.PCM_ITS ---
Providers Date of Admission: 08/22/24 Date of Discharge: 08/23/24 Primary Care Physician: Mel Anderson, FIRE PROTECTION SPECIALIST-C Reason For Visit: ENDOMETRIOSIS Diagnosis Discharge Diagnosis (1) endometritis: Status: Acute Code(s): O86.12 - Endometritis following delivery Plan Anticipate discharge after 24 hours afebrile Medications at Discharge Home Medications [id number]-sgr-[id number]-FA 1 mg tablet 1 tab PO DAILY Check with primary doctor 10/17/21 amoxicillin 500 mg-potassium clavulanate 125 mg tablet (Augmentin) 1 tab PO TID 14 days #42 tabs 08/23/24 doxycycline hyclate 100 mg capsule 100 mg PO BID 14 days #28 caps 08/23/24 Hospital Course Operations None Procedures None Summary of Care Provided Minutes Spent on Discharge: 20 Hospital Course: Admit for endometritis. IV antibiotics and IV toradol. Afebrile for over 24 hours with significant decrease in WBC. Oral antibiotcs for 2 weeks Weight / BMI Weight Weight: 56.245 kg Body Mass Index (BMI) 21.5 ABG / Lab / Microbiology Data 08/23/24 05:49 Laboratory: Laboratory Results - last 24 hr 08/23/24 05:49: WBC 7.3, RBC 3.59 L, Hgb 9.8 L, Hct 30.8 L, MCV 85.8, MCH 27.3, MCHC 31.8 L, RDW Std Deviation 54.7 H, RDW Coeff of Nhi 17.5 H, Plt Count 204, MPV 9.9, Immature Gran % (Auto) 0.800, Neut % (Auto) 76.1 H, Lymph % (Auto) 13.6 L, [place] % (Auto) 6.0, Eos % (Auto) 3.2, Baso % (Auto) 0.3, Absolute Neuts (auto) 5.6, Absolute Lymphs (auto) 0.99, Nucleated RBC % 0 D/C Instructions Discharge Diet: No restrictions May resume sexual activity in: 4-6 weeks Lifting Restrictions: 20 pounds Additional Activity Instructions: Nothing in the vagina for 4-6 weeks. You may return to work/school in 6 weeks. Call your doctor if your incision/area has: Continuous Slow Oozing, Sudden Increased Bleeding, Increased Pain/ Swelling, Increased Redness and Foul Smelling Discharge Call your doctor if you observe: Fever of 101 or Higher and Using more than 1 pad per hour (for 2 hours) Suture Line Care: Avoid Pulling/Pushing and Avoid Pinching/Bending Cleanse incision/area with: Keep Dressing Clean & Dry DC O2, CPAP, BIPAP Needs Home O2 Discharge instructions: No Please Follow Up With: Susana Bolaños MD When: Call to make an appointment for an incision check in 1-2 [phone]. Meaningful Use Info Meaningful Use Meaningful Use Diagnoses (Choose all that apply): None applicable Ischemic Stroke Statin Dosing Therapy Reference: STATIN DOSE THERAPY REFERENCE: * Patients > 75 years receive moderate or high dose statin therapy. * Patients 75 years or YOUNGER should receive HIGH intensity statin dose unless contraindicated. You will be required to document reason for non-treatment if statin daily dose does not meet guidelines. HIGH DOSE STATIN THERAPY DAILY Atorvastatin > than or = to 40 mg Rosuvastatin > than or = to 20 mg Amlodipine + Atorvastatin > than or = to 2.5/40 mg Ezetimibe + Simvastatin 10/80 mg Simvastatin 80mg Discharge Plan Admission Admit Date/Time: 08/22/24 09:11 Primary Reason for Your Visit: endometritis Attending Provider: Anika Ross Primary Care Provider: Mel Anderson NP Discharge Orders/Prescriptions Prescriptions: New amoxicillin-pot clavulanate [Augmentin] 500-125 mg tablet 1 tab PO TID 14 Days Qty: 42 0RF doxycycline hyclate 100 mg capsule 100 mg PO BID 14 Days Qty: 28 0RF Continued jycwakvb-igg-Zz-FA 1 mg Tablet 1 tab PO DAILY Referrals / Follow Up: Mel Anderson NP, FIRE PROTECTION SPECIALIST-C [Primary Care Provider] - Disposition Disposition (needs filled in before D/C Order can be placed): Home, Self Care
[2024-08-23 23:28] VITALS: BP 110/72; PULSE 64; RESP 16; TEMP 36.6; O2SAT 95
== END 2024-08-23 23:28 | disposition home or self-care (01) ==
PROVIDERS: Admitting Provider Obstetrics & Gynecology; PCP Nurse Practitioner Family; Visit Provider Obstetrics & Gynecology
DX: O86.12 Endometritis following delivery (principal)
CPT/HCPCS: 96374; 36415; 85025; 96365; 96366; 96375; 99221; G0378; G0379